=== PATIENT | female | born 1985 | race Two or more races ===

== ENCOUNTER 2024-04-30 22:54 | Inpatient (IN) | payer MEDICAID, OTHER ==
[~2024-04-30] VITALS: Ht 162.6 cm; Wt 78.6 kg
--- NOTE | 2024-04-30 23:22 | ED.PDOC ---
History of Present Illness HPI Comments 39 y/o F, with a Hx of asthma, is BIBA for c/o shortness of breath with associated pain upon breathing and diarrhea, today. Per EMS report, patient endorses sudden return of respiratory symptoms, this evening, with no relieve after using her "friend's albuterol inhaler" following previous episode that occurred, last night. Staff notes on patient having a SpO2 of 89%RA on scene and was placed on 4LPM O2 following breathing treatment administration en route, with SpO2 improving to 92%. EMS staff endorses on patient calling EMS during previous episode and going AMA after feeling better following breathing treatment administration then. At time of assessment, patient comments on having respiratory symptoms for the past "few days" in addition to having diarrhea, today, along with Hx of bronchitis a year ago and tobacco use, with last cigarette being, yesterday. She endorses no recent known sick contact, injuries, substance use, or other relevant or pertinent information. Patient denies having any chest pain, phlegm production, fever, chills, nausea, vomiting, or other associated symptoms or modifiers at this time. Chief Complaint: Shortness of Breath Time Seen by MD: 23:00 Reviewed Notes: Nurses Notes, Endocrinology Nurse Notes, Medications, Allergies Allergies: Coded Allergies: NO KNOWN ALLERGIES (Unverified , 04/30/24) Information Source: Patient, Emergency Med Personnel Mode of Arrival: EMS Severity: Moderate Timing: Hours Duration: Since onset Prehospital treatment: 12 Lead EKG, Breathing Tx, Tab Builder, Oxygen Past Medical History PAST MEDICAL HISTORY: Asthma Surgical History: Denies all surgeries HOT ROLL LAMINATOR History: Denies all HOT ROLL LAMINATOR Hx Family History Family History: Unknown Social History Smoker: Cigarettes Alcohol: Denies ETOH Use Drugs: Denies Drug Use Lives In: Unknown, Unobtainable Respiratory: reports: shortness of breath, others (pain with breathing) Gastrointestinal: reports: diarrhea All Other Systems: Reviewed and Negative (negative unless otherwise stated above or in HPI) Physical Exam General Appearance: No Apparent Distress, Normal HEENT: Normal ENT Inspection, Pharynx Normal, TMs Normal Neck: Full Range of Motion, Non-Tender, Normal, Normal Inspection Respiratory: Chest Non-Tender, No Accessory Muscle Use, No Respiratory Distress, Other (coarse breath sounds bilaterally ) Cardiovascular: No Edema, No JVD, No Murmur, No Gallop, Normal Peripheral Pulses, Regular Rate/Rhythm Breast Exam: Deferred Gastrointestinal: No Organomegaly, Non Tender, No Pulsatile Mass, Normal Bowel Sounds, Soft Genitalia: Deferred Pelvic: Deferred Rectal: Deferred Extremities: No calf tenderness, Normal capillary refill, Normal inspection, Normal range of motion, Non-tender, No pedal edema Musculoskeletal : Apperance: Normal Neurologic: Alert, cottrell blower II-XII nml as Tested, No Motor Deficits, Normal Affect, Normal Mood, No Sensory Deficits Cerebellar Function: Normal Reflexes: Normal Skin: Dry, Normal Color, Warm Lymphatic: No Adenopathy Was a procedure done? Was a procedure done?: No Differential Dx Considerations may include: substance abuse, polysubstance abuse, asthma exacerbation, URI, viral syndrome, PNA, bronchitis X-Ray, Labs, Meds, VS Vital Signs Date Time Temp Pulse Resp B/P (MAP) Pulse Ox O2 Delivery O2 Flow Rate FiO2 05/01/24 01:11 18 93 Nasal Cannula* 2 28 05/01/24 00:32 123 16 94 Room Air* 3 N/A Nasal Cannula* 05/01/24 00:05 98.3 123 16 126/83 (97) 94 98.3 04/30/24 22:58 98.9 108 18 122/88 (99) 92 04/30/24 22:57 121 Lab Test 05/01/24 00:28 04/30/24 23:17 04/30/24 23:13 Range/Units Troponin I High Sensitivity < 3 L < 3 L </=34 ng/L Influenza Type A Antigen Negative Negative Influenza Type B Antigen Negative Negative SARS-CoV-2 Antigen (Rapid) Negative NEGATIVE White Blood Count 9.4 4.4-10.8 10^3/uL Red Blood Count 4.72 4.0-5.20 10^6/uL Hemoglobin 13.4 12.2-16.2 g/dL Hematocrit 39.9 36.0-46.0 % Mean Corpuscular Volume 84.6 80.0-100.0 fL Mean Corpuscular Hemoglobin 28.4 28.0-32.0 pg Mean Corpuscular Hemoglobin Concent 33.6 32.0-36.0 g/dL Red Cell Distribution Width 14.7 H 11.8-14.3 % Platelet Count 234 140-450 10^3/uL Mean Platelet Volume 9.3 6.9-10.8 fL Neutrophils (%) (Auto) 77.9 37.0-80.0 % Lymphocytes (%) (Auto) 11.4 10.0-50.0 % Monocytes (%) (Auto) 8.6 0.0-12.0 % Eosinophils (%) (Auto) 1.9 0.0-7.0 % Basophils (%) (Auto) 0.2 0.0-2.0 % Neutrophils # (Auto) 7.3 1.6-8.6 10 ^3/uL Lymphocytes # (Auto) 1.1 0.4-5.4 10 ^3/uL Monocytes # (Auto) 0.8 0-1.3 10 ^3/uL Eosinophils # (Auto) 0.2 0-0.8 10 ^3/uL Basophils # (Auto) 0 0-0.2 10 ^3/uL Nucleated Red Blood Cells 0.1 % Sodium Level 138 136-145 mmol/L Potassium Level 3.4 L 3.5-5.1 mmol/L Chloride Level 105 98-107 mmol/L Carbon Dioxide Level 27 20-31 mmol/L Anion Gap 6 5-15 Blood Urea Nitrogen 10 9-23 mg/dL Creatinine 0.79 0.550-1.02 mg/dL Glomerular Filtration Rate Calc 98 >90 mL/min BUN/Creatinine Ratio 12.7 10.0-20.0 Serum Glucose 111 H 74-106 mg/dL Calcium Level 10.0 8.7-10.4 mg/dL Current Medications Medications (Trade) Dose Ordered Sig/Julia Route Start Time Stop Time Status Last Admin Methylprednisolone Sodium Succinate (Solu Medrol) 62.5 mg ONCE ONCE IV 05/01/24 01:00 05/01/24 01:01 DC 05/01/24 01:06 Albuterol (Ventolin Medneb) 5 mg ONCE ONCE NEB 05/01/24 01:00 05/01/24 01:01 DC 05/01/24 01:09 [place] [address] Ph: [phone] DIAGNOSTIC IMAGING Diagnostic Imaging Report : [id number] Signed PATIENT: GABBY GORDON ACCT: [id number] UNIT: [id number] : 1985 LOC: ER ROOM / BED: / AGE / SEX: 39 / F ADM STATUS: REG ER SERVICE 2305 ORDERING PHYSICIAN: EMILIE RAMOS MD PROCEDURE(s): CXRP - CHEST PORTABLE REASON: sob ORDER NUMBER(s): [id number], ACCESSION NUMBER(s): [id number] CHEST RADIOGRAPH Indication: sob Technique: Single frontal view of the chest was obtained COMPARISON: None FINDINGS: Lines and Tubes: None Lungs: Clear Pleura: No effusion. No pneumothorax. Cardiomediastinal contours: Unremarkable Bones: Unremarkable IMPRESSION: 1. No acute disease. ATED BY: MARYLOU AARON MD DICTATED DATE/TIME: 05/01/2417 SIGNED BY: MARYLOU AARON MD SIGNED DATE/TIME: 05/01/2417 CC: Time of 1ST Reevaluation: 23:30 Reevaluation 1ST: Improved Patient Education/Counseling: Diagnosis, Treatment Family Education/Counseling: No Family Present Additional Information The following tests were ordered, and results were reviewed by me: troponin, CXR, CBC, BMP, rapid influenza A&B and Covid19 IRMA antigen tests Additional Information was gathered from interviewing the following independent historians: EMT I reviewed and agreed with the following test results read by other providers: CXR I discussed treatment and results with medical personnel Departure 1 Departure Time of Disposition: :42 (Patient likely with asthma exacerbation. Patient is now breathing comfortably with clear lungs. Discharge patient home with outpatient follow up) Impression: Primary Impression: Acute asthma exacerbation Qualified Codes: J45.21 - Mild intermittent asthma with (acute) exacerbation Disposition: HOME / SELF CARE / HOMELESS Condition: Stable Additional Instructions: You likely had an asthma exacerbation. You should use your inhaler as directed. Your prescribed steroids and an inhaler. Please take as directed. It is important to follow up with the regular doctor within 1 week. If your symptoms worsen or you have any other concerns please return to the emergency room. e-Prescriptions Albuterol Sulfate (Albuterol Sulfate) 0.083 % Neb 0.083 % IN QID PRN for 7 Days, #1 INH Prov: EMILIE RAMOS MD 05/01/24 Prednisone (Prednisone) 20 Mg Tab 40 MG PO DAILY for 5 Days, #10 MG Prov: EMILIE RAMOS MD 05/01/24 Discharged With: Self Critical Care Note Critical Care Time?: No Stability Stability form required: No Heart Score Heart Score: Heart Score Response (Comments) Value History N/A 0 EKG N/A 0 Age N/A 0 Risk Factors N/A 0 Troponin N/A 0 Total 0 I personally scribed for EMILIE RAMOS MD ([email or web address]) on 04/30/24 at 23:22. Electronically submitted by Mani Capone ([email or web address]). I personally scribed for EMILIE RAMOS MD ([email or web address]) on 05/01/24 at 01:33. Electronically submitted by Mani Capone ([email or web address]). EMILIE RAMOS MD Apr 30, 2024 23:22
[2024-04-30 23:32] LABS: Basophils # (auto) 0 10 ^3/uL (0-0.2); Basophils % (auto) 0.2 % (0.0-2.0); Eosinophils # (auto) 0.2 10 ^3/uL (0-0.8); Eosinophils % (auto) 1.9 % (0.0-7.0); Hematocrit 39.9 % (36.0-46.0); Hemoglobin 13.4 g/dL (12.2-16.2); Lymphocytes # (auto) 1.1 10 ^3/uL (0.4-5.4); Lymphocytes % (auto) 11.4 % (10.0-50.0); Mean Corpuscular Hemoglobin 28.4 pg (28.0-32.0); Mean Corpuscular Hgb Conc. 33.6 g/dL (32.0-36.0); Mean Corpuscular Volume 84.6 fL (80.0-100.0); Monocytes # (auto) 0.8 10 ^3/uL (0-1.3); Monocytes % (auto) 8.6 % (0.0-12.0); Neutrophils # (auto) 7.3 10 ^3/uL (1.6-8.6); Neutrophils % (auto) 77.9 % (37.0-80.0); Nucleated Red Blood Cells % 0.1 %; Platelet Count (auto) 234 10^3/uL (140-450); Red Blood Cells 4.72 10^6/uL (4.0-5.20); Red Cell Distribution Width 14.7 % (11.8-14.3); White Blood Cell 9.4 10^3/uL (4.4-10.8)
[2024-04-30 23:41] LABS: Chloride 105 mmol/L (98-107); Sodium 138 mmol/L (136-145)
[2024-04-30 23:42] LABS: Anion Gap 6 (5-15); Carbon Dioxide 27 mmol/L (20-31)
[2024-04-30 23:47] LABS: BUN/Creatinine Ratio 12.7 (10.0-20.0); Blood Urea Nitrogen 10 mg/dL (9-23)
[2024-04-30 23:48] LABS: Glucose 111 mg/dL (74-106); Potassium 3.4 mmol/L (3.5-5.1)
[2024-05-01] VITALS (14 sets, daily range): BP systolic 103–133; BP diastolic 55–76; PULSE 78–123; RESP 15–31; TEMP 97.6–98.3; O2SAT 92–100
--- NOTE | 2024-05-01 00:20 | DVH ---
CHEST RADIOGRAPH Indication: sob Technique: Single frontal view of the chest was obtained COMPARISON: None FINDINGS: Lines and Tubes: None Lungs: Clear Pleura: No effusion. No pneumothorax. Cardiomediastinal contours: Unremarkable Bones: Unremarkable IMPRESSION: 1. No acute disease.
[2024-05-01 00:24] LABS: COVID19 ANTIGEN SOFIA FIA NEGATIVE (NEGATIVE); Rapid Influenza A Negative (Negative); Rapid Influenza B Negative (Negative)
[2024-05-01] MEDS: methylPREDNISolone SOD SUCC 125 MG/2 ML VL IV ONE (01:06)
[2024-05-01] MEDS: IPRATROPIUM BROM 0.5 MG/2.5ML INH SOL ONE (01:09)
[2024-05-01] MEDS: ALBUTEROL SULF 2.5 MG/0.5ML(0.5%) NEB SOLN NEB ONE (01:09)
[2024-05-01] MEDS: IPRATROPIUM BROM 0.5 MG/2.5ML INH SOL NEB ONE (01:10)
[2024-05-01] MEDS: ALBUTEROL SULF 2.5 MG/0.5ML(0.5%) NEB SOLN ONE (01:10)
[2024-05-01] MEDS ORDERED: PRED20TA2 PO (01:44)
[2024-05-01] MEDS ORDERED: ALBU0.084 IN (01:44)
[2024-05-01] MEDS ORDERED: NITROGLYCERIN 0.4 MG SL TAB SL PRN (04:30)
[2024-05-01] MEDS ORDERED: ONDANSETRON HCL 4 MG/2 ML VIAL IV PRN (04:30)
[2024-05-01] MEDS ORDERED: MORPHINE SULFATE INJ 2 MG/ml SYRG IV PRN (04:30)
--- NOTE | 2024-05-01 05:11 | DVHHP2 ---
History of Present Illness Reason for Visit: Shortness of breath History of Present Illness 79-year-old female presents for evaluation of shortness for breath. Patient with asthma reports a two day history of worsening shortness for breath. She has been using her inhaler and nebulizer at home without relief of the symptoms. On arrival patient was noted to be saturating in the low 80s on room air. Reports having a nonproductive cough that started yesterday. Denies chest pain or palpitations. Reports having fever for the past one day intermittently as well. No other acute complaints reported. Past Medical History Asthma Past Surgical History Denies Family History Noncontributory Smoke: <1 pack per day ALCOHOL: none Drugs: None Lives: with Family Review of Systems Review of Systems Review of systems are currently negative otherwise addressed in HPI. Allergies: Coded Allergies: NO KNOWN ALLERGIES (Unverified , 04/30/24) Medications Current Medications Medications Dose Ordered Sig/Julia Route Start Time Stop Time Status Last Admin Dose Admin Albuterol 2.5 mg Q6HPRN PRN NEB 05/01/24 04:30 Ipratropium [place] 0.5 mg Q6HPRN PRN NEB 05/01/24 04:30 Methylprednisolone Sodium Succinate 40 mg BID IV 05/01/24 22:00 Azithromycin 250 ml @ 125 mls/hr DAILY IV 05/01/24 10:00 Temazepam 15 mg QHSP PRN PO 05/01/24 04:30 Ondansetron HCl 4 mg Q4HP PRN IV 05/01/24 04:30 Acetaminophen 650 mg Q6HP PRN PO 05/01/24 04:30 Nitroglycerin 0.4 mg Q5MINP PRN SL 05/01/24 04:30 Morphine Sulfate 2 mg Q30M PRN IV 05/01/24 04:30 Exam Vital Signs Vital Signs Date Time Temp Pulse Resp B/P (MAP) Pulse Ox O2 Delivery O2 Flow Rate FiO2 05/01/24 04:57 98.3 97 31 113/75 92 2.0 28 98.3 05/01/24 01:11 Nasal Cannula* Exam Gen: 39-year-old female in mild distress Skin: Warm, dry, normal color and texture, no rash. HEENT: Normocephalic atraumatic, mucous membranes moist and pink. Neck: Cervical and supraclavicular nodes normal without enlargement, trachea is midline, thyroid gland is normal without masses. Pulmonary: Bilateral wheeze Cardiac: Sinus tachycardia Abdomen: Soft, nontender, nondistended, bowel sounds present all 4 quadrants, no guarding, no rigidity, no organomegaly. Extremities: No cyanosis, clubbing, no edema Neuro: Cranial nerves II through XII grossly intact, normal affect and speech, no focal motor deficits. Labs/Xrays ORDERING PHYSICIAN: EMILIE RAMOS MD PROCEDURE(s): CXRP - CHEST PORTABLE REASON: sob ORDER NUMBER(s): [id number], ACCESSION NUMBER(s): [id number] CHEST RADIOGRAPH Indication: sob Technique: Single frontal view of the chest was obtained COMPARISON: None FINDINGS: Lines and Tubes: None Lungs: Clear Pleura: No effusion. No pneumothorax. Cardiomediastinal contours: Unremarkable Bones: Unremarkable IMPRESSION: 1. No acute disease. Labs Test 05/01/24 00:28 04/30/24 23:17 04/30/24 23:13 Range/Units Troponin I High Sensitivity < 3 L </=34 ng/L Influenza Type A Antigen Negative Negative Influenza Type B Antigen Negative Negative SARS-CoV-2 Antigen (Rapid) Negative NEGATIVE White Blood Count 9.4 4.4-10.8 10^3/uL Red Blood Count 4.72 4.0-5.20 10^6/uL Hemoglobin 13.4 12.2-16.2 g/dL Hematocrit 39.9 36.0-46.0 % Mean Corpuscular Volume 84.6 80.0-100.0 fL Mean Corpuscular Hemoglobin 28.4 28.0-32.0 pg Mean Corpuscular Hemoglobin Concent 33.6 32.0-36.0 g/dL Red Cell Distribution Width 14.7 H 11.8-14.3 % Platelet Count 234 140-450 10^3/uL Mean Platelet Volume 9.3 6.9-10.8 fL Neutrophils (%) (Auto) 77.9 37.0-80.0 % Lymphocytes (%) (Auto) 11.4 10.0-50.0 % Monocytes (%) (Auto) 8.6 0.0-12.0 % Eosinophils (%) (Auto) 1.9 0.0-7.0 % Basophils (%) (Auto) 0.2 0.0-2.0 % Neutrophils # (Auto) 7.3 1.6-8.6 10 ^3/uL Lymphocytes # (Auto) 1.1 0.4-5.4 10 ^3/uL Monocytes # (Auto) 0.8 0-1.3 10 ^3/uL Eosinophils # (Auto) 0.2 0-0.8 10 ^3/uL Basophils # (Auto) 0 0-0.2 10 ^3/uL Nucleated Red Blood Cells 0.1 % Sodium Level 138 136-145 mmol/L Potassium Level 3.4 L 3.5-5.1 mmol/L Chloride Level 105 98-107 mmol/L Carbon Dioxide Level 27 20-31 mmol/L Anion Gap 6 5-15 Blood Urea Nitrogen 10 9-23 mg/dL Creatinine 0.79 0.550-1.02 mg/dL Glomerular Filtration Rate Calc 98 >90 mL/min BUN/Creatinine Ratio 12.7 10.0-20.0 Serum Glucose 111 H 74-106 mg/dL Calcium Level 10.0 8.7-10.4 mg/dL Assessment/Plan Assessment/Plan Assessment Acute on chronic hypoxic respiratory failure Status asthmaticus Acute bronchitis Plan Admit the patient to telemetry to the hospitalist Med nebs Methylprednisone Azithromycin Continue treatment per orders. Plan discussed with: Patient My Orders Orders - BISI TIWARI AGACNP Procedure Category Date Status Time Albuterol Medneb PHA 05/01/24 In Process (Ventolin Medneb) 04:30 Ipratropium Medneb PHA 05/01/24 In Process (Atrovent Medneb) 04:30 Methylprednisolone PHA 05/01/24 In Process Sod Succ (Solu Medrol 22:00 Azithromycin 500mg/ PHA 05/01/24 In Process 250ml (Zithromax 50 10:00 Rapid Influenza A&B LAB 05/01/24 Logged 04:26 Covid19 Antigen Cara LAB 05/01/24 Logged Basic Metabolic Panel LAB 05/02/24 Verified 04:00 Regular Diet DIET 05/01/24 Transmitted Breakfast Admit ADMIT 05/01/24 Transmitted 04:26 Temazepam (Restoril) PHA 05/01/24 In Process 04:30 Ondansetron Hcl PHA 05/01/24 In Process (Zofran) 04:30 Complete Blood Count LAB 05/02/24 Verified 04:00 Condition: Fair BRENDA 05/01/24 In Process 04:26 Acetaminophen Tablet [facility] 05/01/24 In Process (Tylenol Tablet) 04:30 Bedrest With Bathroom [facility] 05/01/24 In Process Privileg 04:[address] [facility] 05/01/24 In Process Sublingual (Ntrostat 04:30 Morphine Sulfate PHA 05/01/24 In Process Injection 04:30 Stat Ekg For Chest [facility] 05/01/24 In Process Pain 04:26 Notify Md Of Changes [facility] 05/01/24 In Process From Base 04:26 Cotton Buyer For [facility] 05/01/24 In Process 24 Hours 04:26 Emergency Dysrhythmia [facility] 05/01/24 In Process Protocol 04:26 Rhythm Strips Once [facility] 05/01/24 In Process Every Shift 04:26 Oxygen By Nasal RT 05/01/24 Transmitted Cannula 04:26 D-Dimer LAB 05/01/24 Logged 05:03 Potassium Er Tablet [facility] 05/01/24 In Process (Klor-Con Tablet) 05:15 Date of Service: May 01, 2024 Billing Provider: BISI TIWARI Common Visit Codes: [id number] INP/OBS CARE (HIGH) BISI TIWARI May 01, 2024 05:11
[2024-05-01] MEDS: POTASSIUM CHL 20 Meq TABLET PO ONE (05:38)
--- NOTE | 2024-05-01 07:02 | ECG ---
[facility] Test Date: 2024-04-30 Test Time: 22:57:35 Pat Name: GABBY GORDON Department: ED Room: 0298T Gender: F Song Writer: TWYLA : 1985 Requested By: EMILIE RAMOS Order Number: [id number] Reading MD: Austyn Womack Measurements Intervals [place] Rate: 121 P: 80 OR: 189 QRS: 79 QRSD: 75 T: 6 QT: 335 QTc: 476 Interpretive Statements Sinus tachycardia Probable anteroseptal infarct, old Borderline T abnormalities, inferior leads Electronically Signed On 05-02-2024 8:53:31 PST by Austyn Womack Please click the below link to view image of tracing.
[2024-05-01] MEDS: IPRATROPIUM BROM 0.5 MG/2.5ML INH SOL NEB PRN (10:05)
[2024-05-01] MEDS: AZITHROMYCIN 500MG/ 250ML 250 ML IV SCH (10:37)
--- NOTE | 2024-05-01 15:46 | DVHPN2 ---
Subjective Patient reports improvement with breathing. Reviewed: Care Plan, H&P, Labs, Medications Changes from previous H/P or p: No Changes General: Per HPI Objective Vitals Vital Signs Date Time Temp Pulse Resp B/P (MAP) Pulse Ox O2 Delivery O2 Flow Rate FiO2 05/01/24 15:33 97.8 98 18 118/60 (79) 98 97.8 05/01/24 10:42 Nasal Cannula* 3 32 General Appearance: Alert, Oriented X3, Cooperative, No acute distress HEENT: Atraumatic Cardiovascular: Normal S1, Normal S2 Abdomen: Normal bowel sounds, Soft, No tenderness Musculoskeletal: Normal sensory function, Normal motor function Neuro: Normal gait, Normal speech Psych/Mental Status: Mental status NL, Mood NL Medications Current Medications Medications Dose Ordered Sig/Julia Route Start Time Stop Time Status Last Admin Dose Admin Albuterol 2.5 mg Q6HPRN PRN NEB 05/01/24 04:30 Ipratropium [place] 0.5 mg Q6HPRN PRN NEB 05/01/24 04:30 05/01/24 10:05 0.5 MG Methylprednisolone Sodium Succinate 40 mg BID IV 05/01/24 22:00 Azithromycin 250 ml @ 125 mls/hr DAILY IV 05/01/24 10:00 05/01/24 10:37 125 MLS/HR Temazepam 15 mg QHSP PRN PO 05/01/24 04:30 Ondansetron HCl 4 mg Q4HP PRN IV 05/01/24 04:30 Acetaminophen 650 mg Q6HP PRN PO 05/01/24 04:30 Nitroglycerin 0.4 mg Q5MINP PRN SL 05/01/24 04:30 Morphine Sulfate 2 mg Q30M PRN IV 05/01/24 04:30 Laboratory Results Laboratory Tests 04/30/24 23:13 Chemistry Test 04/30/24 23:13 Calcium Level 10.0 mg/dL (8.7-10.4) Coagulation Test 05/01/24 07:25 D-Dimer, Quantitative 0.30 mg/L FEU (0.0-0.49) Labs and/or images reviewed: Labs reviewed by me, Image(s) reviewed by me Assessment/Plan Assessment/Plan Impression: -acute hypoxic respiratory failure -asthma exacerbation -hypokalemia -nicotine dependence Plan: Events: Patient continues to have inspiratory and expiratory wheezing. Patient does report that her respiratory status has improved. -wean O2 supplementation to keep saturation greater than 92% -continue bronchodilators. Add Pulmicort -continue IV Solu-Medrol -magnesium 1 g IV -gentle IV hydration -repeat labs and chest x-ray in a.m. -smoking cessation education: 10 minutes spent with the patient. Total time spent with patient discussing and formulating plan of care: 35 minutes. This medical document was created using an electronic medical record system with [employer] dictation system. Although this document has been carefully reviewed, there may still be some phonetic and typographical errors. These areas are purely typographical due to imperfections of the software programs, and do not reflect any compromise in the patient's medical care. Plan discussed with: Patient, Other (RN) My Orders Orders - SHOLA ROBIN NP Procedure Category Date Status Time Magnesium Dean PHA 05/01/24 Transmitted 15:45 NS PHA 05/01/24 Transmitted 15:45 Budesonide PHA 05/01/24 Transmitted (Inhalation) 22:00 Basic Metabolic Panel LAB 05/02/24 Verified 04:00 Chest Portable XY 05/02/24 Transmitted 04:00 Date of Service: May 01, 2024 Billing Provider: SHOLA ROBIN NP Common Visit Codes: [id number] INP/OBS CARE(HIGH) SHOLA ROBIN NP May 01, 2024 15:46
[2024-05-01] MEDS: SODIUM CHLORIDE 0.9% 1,000 ML IV ONE (16:41)
[2024-05-01] MEDS: MAGNESIUM SULFATE 1GM/100ML 100 ML IV ONE (17:26)
[2024-05-01] MEDS: TEMAZEPAM 15 MG CAP PO PRN (18:07)
[2024-05-01] MEDS: ACETAMINOPHEN 325 MG TAB PO PRN (18:08)
[2024-05-01] MEDS: BUDESONIDE (INHALATION) 0.5 MG/2 ML NEB NEB SCH (19:45)
[2024-05-01] MEDS: methylPREDNISolone SOD SUCC 40 MG/ML VL IV SCH (21:31)
[2024-05-01] MEDS: HYDROcodone-ACET 5/325MG TAB PO PRN (22:20)
[2024-05-02] VITALS (15 sets, daily range): BP systolic 110–148; BP diastolic 58–80; PULSE 64–110; RESP 16–20; TEMP 97.6–98.6; O2SAT 91–98
[2024-05-02] MEDS: ALBUTEROL SULF 2.5 MG/0.5ML(0.5%) NEB SOLN NEB PRN (02:51)
--- NOTE | 2024-05-02 05:34 | DVH ---
CHEST RADIOGRAPH Indication: Asthma Technique: Single frontal view of the chest was obtained Comparison: XY CHEST PORTABLE on DOS: 05/01/24 FINDINGS: Lines and Tubes: None Lungs: Left basilar opacity. The rest of the lungs are clear. Pleura: No effusion. No pneumothorax. Cardiomediastinal contours: Unremarkable Bones: No acute osseous abnormality. IMPRESSION: 1. Left basilar opacity which may reflect atelectasis or consolidation.
[2024-05-02 08:10] LABS: Potassium 4.6 mmol/L (3.5-5.1); Sodium 139 mmol/L (136-145)
[2024-05-02 08:11] LABS: Anion Gap 7 (5-15); Basophils # (auto) 0 10 ^3/uL (0-0.2); Basophils % (auto) 0.1 % (0.0-2.0); Calcium 9.7 mg/dL (8.7-10.4); Carbon Dioxide 24 mmol/L (20-31); Eosinophils # (auto) 0 10 ^3/uL (0-0.8); Hematocrit 38.2 % (36.0-46.0); Hemoglobin 12.7 g/dL (12.2-16.2); Lymphocytes % (auto) 11.4 % (10.0-50.0); Mean Corpuscular Hemoglobin 28.4 pg (28.0-32.0); Mean Corpuscular Hgb Conc. 33.3 g/dL (32.0-36.0); Mean Corpuscular Volume 85.4 fL (80.0-100.0); Monocytes # (auto) 0.7 10 ^3/uL (0-1.3); Monocytes % (auto) 7.8 % (0.0-12.0); Neutrophils # (auto) 7.2 10 ^3/uL (1.6-8.6); Neutrophils % (auto) 80.7 % (37.0-80.0); Nucleated Red Blood Cells % 0.1 %; Platelet Count (auto) 235 10^3/uL (140-450); Red Blood Cells 4.47 10^6/uL (4.0-5.20); Red Cell Distribution Width 14.8 % (11.8-14.3); White Blood Cell 8.9 10^3/uL (4.4-10.8)
[2024-05-02 08:16] LABS: BUN/Creatinine Ratio 21.3 (10.0-20.0); Blood Urea Nitrogen 19 mg/dL (9-23); Chloride 108 mmol/L (98-107); Glucose 187 mg/dL (74-106)
[2024-05-02] MEDS: AZITHROMYCIN 500MG/ 250ML 250 ML IV SCH (12:51)
[2024-05-02] MEDS ORDERED: MAGNESIUM SULFATE 1GM/100ML 100 ML IV ONE (15:45)
--- NOTE | 2024-05-02 15:45 | DVHPN2 ---
Subjective Patient reports improvement with breathing. Reviewed: Care Plan, H&P, Labs, Medications Changes from previous H/P or p: No Changes General: Per HPI Objective Vitals Vital Signs Date Time Temp Pulse Resp B/P (MAP) Pulse Ox O2 Delivery O2 Flow Rate FiO2 05/02/24 13:00 97.6 64 18 148/60 (89) 97 97.6 05/02/24 10:00 Nasal Cannula* 2 28 Intake/Output Intake and Output 05/02/24 07:00 Intake Total 400 ml Balance 400 ml Intake Oral 300 ml IV Total 100 ml # Voids 3 General Appearance: Alert, Oriented X3, Cooperative, No acute distress HEENT: Atraumatic Lungs: Other (Continues to have inspiratory and expiratory) Cardiovascular: Normal S1, Normal S2 Abdomen: Normal bowel sounds, Soft, No tenderness Musculoskeletal: Normal sensory function, Normal motor function Neuro: Normal gait, Normal speech Skin: Dry, Intact Psych/Mental Status: Mental status NL, Mood NL Medications Current Medications Medications Dose Ordered Sig/Julia Route Start Time Stop Time Status Last Admin Dose Admin Albuterol 2.5 mg Q6HPRN PRN NEB 05/01/24 04:30 05/02/24 07:59 2.5 MG Ipratropium [place] 0.5 mg Q6HPRN PRN NEB 05/01/24 04:30 05/02/24 02:52 0.5 MG Temazepam 15 mg QHSP PRN PO 05/01/24 04:30 05/01/24 18:07 15 MG Ondansetron HCl 4 mg Q4HP PRN IV 05/01/24 04:30 Acetaminophen 650 mg Q6HP PRN PO 05/01/24 04:30 05/01/24 18:08 650 MG Nitroglycerin 0.4 mg Q5MINP PRN SL 05/01/24 04:30 Morphine Sulfate 2 mg Q30M PRN IV 05/01/24 04:30 Budesonide 0.5 mg BID NEB 05/01/24 22:00 05/02/24 07:52 0.5 MG Acetaminophen/ Hydrocodone Bitart 1 tab Q8HPRN PRN PO 05/01/24 22:15 05/02/24 15:28 1 TAB Azithromycin 250 ml @ 125 mls/hr DAILY IV 05/02/24 12:36 05/02/24 12:51 125 MLS/HR Methylprednisolone Sodium Succinate 80 mg BID IV 05/02/24 22:00 UNV Laboratory Results Laboratory Tests 05/02/24 07:39 Chemistry Test 05/02/24 07:39 Calcium Level 9.7 mg/dL (8.7-10.4) Labs and/or images reviewed: Labs reviewed by me, Image(s) reviewed by me Assessment/Plan Assessment/Plan Impression: -acute hypoxic respiratory failure -asthma exacerbation -hypokalemia -nicotine dependence Plan: Events: Patient continues to have inspiratory and expiratory wheezing. -wean O2 supplementation to keep saturation greater than 92% -continue bronchodilators. Add Pulmicort -increase IV Solu-Medrol -continuous albuterol treatment -magnesium 1 g IV , repeat -gentle IV hydration -repeat labs and chest x-ray in a.m. -smoking cessation education: 10 minutes spent with the patient. Total time spent with patient discussing and formulating plan of care: 35 minutes. This medical document was created using an electronic medical record system with [employer] dictation system. Although this document has been carefully reviewed, there may still be some phonetic and typographical errors. These areas are purely typographical due to imperfections of the software programs, and do not reflect any compromise in the patient's medical care. Plan discussed with: Patient, Other (RN) My Orders Orders - SHOLA ROBIN NP Procedure Category Date Status Time Methylprednisolone PHA 05/02/24 Verified Sod Succ (Solu Medrol 22:00 Magnesium [place] PHA 05/02/24 Transmitted 15:45 Albuterol Medneb PHA 05/02/24 Transmitted (Ventolin Medneb) 15:45 NS PHA 05/02/24 Transmitted 15:45 Ceftriaxone Ivpb PHA 05/02/24 Transmitted Rocephin 15:45 Basic Metabolic Panel LAB 05/03/24 Verified 04:00 Magnesium LAB 05/03/24 Verified 04:00 Date of Service: May 02, 2024 Billing Provider: SHOLA ROBIN NP Common Visit Codes: [id number] INP/OBS CARE(HIGH) Secondary Visit Codes: [id number] CHNG SMOKING >10MIN SHOLA ROBIN NP May 02, 2024 15:45
[2024-05-02] MEDS: ALBUTEROL SULF 2.5 MG/0.5ML(0.5%) NEB SOLN NEB ONE (16:16)
[2024-05-02] MEDS: SODIUM CHLORIDE 0.9% 1,000 ML IV SCH (16:42)
[2024-05-02] MEDS: cefTRIAXone 1GM/50ML D5W 50 ML IV SCH (16:46)
[2024-05-02] MEDS: methylPREDNISolone SOD SUCC 125 MG/2 ML VL IV SCH (21:20)
[2024-05-02] MEDS: HYDROcodone-ACET 5/325MG TAB PO PRN (21:20)
[2024-05-03] VITALS (7 sets, daily range): BP systolic 113–142; BP diastolic 72–92; PULSE 71–125; RESP 15–22; TEMP 98–98.4; O2SAT 92–97
[2024-05-03 08:35] LABS: Potassium 4.5 mmol/L (3.5-5.1); Sodium 139 mmol/L (136-145)
[2024-05-03 08:36] LABS: Anion Gap 6 (5-15); Calcium 9.7 mg/dL (8.7-10.4); Carbon Dioxide 25 mmol/L (20-31)
[2024-05-03 08:37] LABS: Chloride 108 mmol/L (98-107)
[2024-05-03 08:41] LABS: BUN/Creatinine Ratio 15.3 (10.0-20.0); Blood Urea Nitrogen 11 mg/dL (9-23)
[2024-05-03 08:42] LABS: Magnesium 2.2 mg/dL (1.6-2.6)
[2024-05-03 08:47] LABS: Glucose 135 mg/dL (74-106)
[2024-05-03] MEDS ORDERED: AZITTAB PO (10:25)
[2024-05-03] MEDS ORDERED: ALBUAER3 IN (10:25)
[2024-05-03] MEDS ORDERED: PRED20TA2 PO (10:25)
--- NOTE | 2024-05-03 10:28 | DVHDS2 ---
Discharge Summary Date of Admission May 01, 2024 at 04:26 Date of Discharge: May 03, 2024 Admitting Diagnosis Acute respiratory failure Labs/Diagnostic Data: Laboratory Results Test 05/03/24 07:40 05/02/24 07:39 05/01/24 07:25 05/01/24 00:28 Sodium Level 139 mmol/L (136-145) Potassium Level 4.5 mmol/L (3.5-5.1) Chloride Level 108 mmol/L (98-107) Carbon Dioxide Level 25 mmol/L (20-31) Anion Gap 6 (5-15) Blood Urea Nitrogen 11 mg/dL (9-23) Creatinine 0.72 mg/dL (0.550-1.02) Glomerular Filtration Rate Calc 109 mL/min (>90) BUN/Creatinine Ratio 15.3 (10.0-20.0) Serum Glucose 135 mg/dL (74-106) Calcium Level 9.7 mg/dL (8.7-10.4) Magnesium Level 2.2 mg/dL (1.6-2.6) White Blood Count 8.9 10^3/uL (4.4-10.8) Red Blood Count 4.47 10^6/uL (4.0-5.20) Hemoglobin 12.7 g/dL (12.2-16.2) Hematocrit 38.2 % (36.0-46.0) Mean Corpuscular Volume 85.4 fL (80.0-100.0) Mean Corpuscular Hemoglobin 28.4 pg (28.0-32.0) Mean Corpuscular Hemoglobin Concent 33.3 g/dL (32.0-36.0) Red Cell Distribution Width 14.8 % (11.8-14.3) Platelet Count 235 10^3/uL (140-450) Mean Platelet Volume 9.4 fL (6.9-10.8) Neutrophils (%) (Auto) 80.7 % (37.0-80.0) Lymphocytes (%) (Auto) 11.4 % (10.0-50.0) Monocytes (%) (Auto) 7.8 % (0.0-12.0) Eosinophils (%) (Auto) 0.0 % (0.0-7.0) Basophils (%) (Auto) 0.1 % (0.0-2.0) Neutrophils # (Auto) 7.2 10 ^3/uL (1.6-8.6) Lymphocytes # (Auto) 1.0 10 ^3/uL (0.4-5.4) Monocytes # (Auto) 0.7 10 ^3/uL (0-1.3) Eosinophils # (Auto) 0 10 ^3/uL (0-0.8) Basophils # (Auto) 0 10 ^3/uL (0-0.2) Nucleated Red Blood Cells 0.1 % D-Dimer, Quantitative 0.30 mg/L FEU (0.0-0.49) Troponin I High Sensitivity < 3 ng/L (</=34) Test 04/30/24 23:17 Influenza Type A Antigen Negative (Negative) Influenza Type B Antigen Negative (Negative) SARS-CoV-2 Antigen (Rapid) Negative (NEGATIVE) Other Laboratory Tests 05/03/24 07:40 05/02/24 07:39 Brief Hx & Hospital Course: History of Present Illness 39-year-old female presents for evaluation of shortness for breath. Patient with asthma reports a two day history of worsening shortness for breath. She has been using her inhaler and nebulizer at home without relief of the symptoms. On arrival patient was noted to be saturating in the low 80s on room air. Reports having a nonproductive cough that started yesterday. Denies chest pain or palpitations. Reports having fever for the past one day intermittently as well. No other acute complaints reported. Course of hospitalization: Patient was started on empiric antibiotic therapy, IV hydration, bronchodilators as well as Solu-Medrol IV. Patient continued to have wheezing as well as O2 supplementation after initial treatment. Patient was then started on Pulmicort b.i.d., as well as the patient receiving IV magnesium. Repeat chest x-ray reveals questionable left lower lobe opacity, for which the patient's antibiotics were broadened. Patient has been titrated off of oxygen with her saturation noted to be 93% on room air. She states that she was no longer dyspneic with ambulating. She was requesting to be discharged home. Patient will be continued on steroid use, prednisone 40 mg p.o. daily x5 days in addition to having a prescription placed for azithromycin unit Dosepak, Ventolin 90 mcg two puffs q.4 hours as needed for shortness of breath. She was instructed to stop smoking. Patient has also been instructed to follow up with the discharge Clinic since she does not have a PCP. Physical examination General: Alert and Oriented x3. No acute distress. Well-nourished. Eyes: EOMI. Anicteric. HENT: Moist mucous membranes. Lungs: Clear to auscultation bilaterally. No accessory muscle use. Cardiovascular: Regular rate and rhythm. No murmur. No JVD. Abdomen: Soft, non-tender and non-distended. No palpable masses. Extremities: No edema. Non-tender. Skin: No rashes or lesions. Warm. Neurologic: No focal neurological deficits. CN II-XII grossly intact, but not individually tested. Psychiatric: Cooperative. Appropriate mood and affect. Total time spent with patient discussing and formulating plan of care: 35 minutes. This medical document was created using an electronic medical record system with [employer] dictation system. Although this document has been carefully reviewed, there may still be some phonetic and typographical errors. These areas are purely typographical due to imperfections of the software programs, and do not reflect any compromise in the patient's medical care. Condition at Discharge: Fair Final Diagnosis/Problems List Acute hypoxic respiratory failure Secondary Diagnosis: -acute hypoxic respiratory failure -asthma exacerbation -hypokalemia -nicotine dependence Discharge Disposition: Home Discharge Instruct/Medications Diet: Regular Activity: No Restrictions, As Tolerated Follow Up/Referral: Discharge Clinic in one week Medications: Azithromycin unit Dosepak. Use as directed Ventolin 90 mcg two puffs q.4 hours as needed for shortness of breaths Prednisone 40 mg p.o. daily x5 days 36 Discharge Statement: "Patient was advised to return to the ER or call 911 if any headaches, dizziness, shortness of breath, chest pain, abdominal pain, bleeding, fevers, or worsening of medical condition. Patient was counseled about treatment plan, medications, possible side effects, patientverbalized understanding. All questions were answered to the best of my ability. This discharge took greater then 30 minutes in planning, reviewing documentation, counseling the patient, and discussing with other team members." ASSESSMENT ASSESSMENT Assessment Acute hypoxic respiratory failure Date of Service: May 03, 2024 Billing Provider: SHOLA ROBIN NP Common Visit Codes: [id number] CARE 30-74 MIN SHOLA ROBIN NP May 03, 2024 10:28
== END 2024-05-03 14:27 | disposition home or self-care (01) | DRG 133 ==
LOC: EDBD 22:54 → ER 22:54 → TELE 05-01 04:26 → TELE-WESTW 05-01 16:01
PROVIDERS: ADMIT Nurse Practitioner; ATTEND Nurse Practitioner Acute Care
DX: J96.21 Acute and chronic respiratory failure with hypoxia (principal); J45.22 Mild intermittent asthma with status asthmaticus; Z20.822 Contact with and (suspected) exposure to COVID-19; E87.6 Hypokalemia; F17.210 Nicotine dependence, cigarettes, uncomplicated; Z79.899 Other long term (current) drug therapy
CPT/HCPCS: 36415; 71045; 80048; 83735; 84484; 85025; 85379; 87426; 87804; 93005; 94640; G0378